=== PATIENT | female | born 1990 | race Caucasian/White ===

== ENCOUNTER 2020-02-27 06:57 | Inpatient (IN) ==
[2020-02-27] MEDS ORDERED: ACETAMINOPHEN 500 MG TAB PO STA (07:13)
--- NOTE | 2020-02-27 07:30 | Emergency Department Note ---
History of Present Illness General Chief complaint: Shortness of Breath/Dyspnea Stated complaint: SOB,COUGH,FEVER,CHEST FEELS HEAVY Time Seen by Provider: 02/27/20 07:07 Source: patient, RN notes reviewed and old records reviewed Mode of arrival: ambulatory Limitations: no limitations History of Present Illness Provider complaint: Chest pain Onset (ago): hour(s) 3 Location: chest Radiation: non-radiation Severity: moderate Pain Consistency: + other (pleuritic) Maximum Pain Intensity: 5 Current Pain Intensity: 5 Quality: + aching Relieved By: + immobilization Exacerbated By: + other (breathing) Associated symptoms: + denies other symptoms Treatments prior to arrival: none This is a 29-year-old female who presents the emergency department complaining of chest pain that started yesterday. In addition the patient is also on amoxicillin which was started yesterday for tooth pain. Patient describes the chest pain as pleuritic in nature. She reports that it gets worse every time she takes a deep breath. She also has a history of asthma as well as pneumonia. She is running a fever here in the emergency department however did not realize this. She denies any abdominal pain. Home Medications Home Medications Medication Instructions Recorded Confirmed Type albuterol sulfate 2 puff INHALATION Q4H PRN 02/01/20 02/27/20 History pantoprazole [Protonix] 40 mg PO DAILY 28 Days #28 tab 02/01/20 02/27/20 Rx propranolol 10 mg PO BID PRN 02/01/20 02/27/20 History quetiapine 300 mg PO HS 02/01/20 02/27/20 History sertraline 200 mg PO DAILY 02/01/20 02/27/20 History mirtazapine 15 mg PO HS 02/27/20 02/27/20 History Allergies Allergy/AdvReac Type Severity Reaction Status Date / Time latex Allergy Intermediate Hives Verified 02/27/20 07:54 fluconazole [From Diflucan] Allergy Hives Unverified 02/27/20 07:54 diphenhydramine AdvReac Hives Unverified 02/27/20 07:54 [From Benadryl] Past Med/Surg History Medical History Anxiety no meds Asthma childhood, no inhaler, no issues now Depression no meds--12/2016 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 Horvath 08/09/19 Hx of appendectomy Family History Mother Hypertension Family history of diabetes mellitus Pulmonary embolism Aunt Family history of diabetes mellitus Grandfather Heart disease Stroke Grandmother Heart disease Stroke Pulmonary embolism Grandmother (Paternal) Family history of esophageal cancer Father Suicide Other No family history of adverse response to anesthesia No significant family history Social History Preferred Language: Faroese Communication Ability: Effective Paper Ruler Required: No Beliefs That Will Affect Care: None marital status: Single marital status details: Current Living Situation: Significant Other Current Living Situation Comment: lives with kathya and his parents current occupational status: student current occupation: full-time student Other Information That Helps Us Care for You: No Feels Safe at Home: Yes Safety Concerns: Feels Safe At This Time Smoking Status: Current every day smoker Tobacco Type: e-cigarettes ; Cigarettes Per Day: uses vap every day ; Do You Dip or Chew Tobacco: No ; Second Hand Exposure: Yes ; Tobacco Cessation Education Requested by Patient: No Hx Alcohol Use: Yes Alcohol type: beer Hx Substance Use: No (history) Review of Systems A total of 10 systems reviewed and were otherwise negative Physical Exam Vital Signs Vital Signs - 24 hr 02/27/20 07:01 02/27/20 07:52 02/27/20 07:54 Temperature 38 C H Temperature Source Oral Pulse Rate 112 H Pulse Rate [Apical] Respiratory Rate 14 Respiratory Depth Normal Blood Pressure 115/80 Blood Pressure [Right Arm] Blood Pressure Mean 91 Blood Pressure Mean [Right Arm] Pulse Oximetry 95 95 96 Oxygen Delivery Method Room Air Room Air Room Air Sepsis Recent Fever Within 48 Hours Yes Sepsis New/Unexplained Change in Mental Status No Sepsis Action Taken by Nursing No Action Required 02/27/20 08:57 02/27/20 10:00 Temperature Temperature Source Pulse Rate Pulse Rate [Apical] 83 75 Respiratory Rate 18 18 Respiratory Depth Blood Pressure Blood Pressure [Right Arm] 118/72 106/59 L Blood Pressure Mean Blood Pressure Mean [Right Arm] 87 74 Pulse Oximetry 97 97 Oxygen Delivery Method Room Air Room Air Sepsis Recent Fever Within 48 Hours Sepsis New/Unexplained Change in Mental Status Sepsis Action Taken by Nursing GENERAL: Patient is a healthy-appearing well-nourished female HEAD: Normocephalic atraumatic EYES: Ocular movements intact pupils equal and react to light OROPHARYNX mucous membranes are moist no exudates present no erythema or edema present NECK: Supple no nuchal rigidity CHEST: Good equal expansion LUNGS: Clear and equal to auscultation CARDIAC: Normal S1 and S2 ABDOMEN: Soft nontender no guarding BACK: No CVA tenderness EXTREMITIES: No pain upon palpation normal muscle strength in all groups no clubbing cyanosis or edema NEURO: Patient is following commands is answering questions appropriately. Alert and oriented x3 Cranial Nerves 2-12 grossly intact Course Administered Medications Discontinued Medications Acetaminophen (Tylenol) 1,000 mg PO NOW STA Stop: 02/27/20 07:14 Last Admin: 02/27/20 07:27 Dose: 1,000 mg Documented by: [id number] Doxycycline Hyclate (Vibramycin) 100 mg PO NOW STA Stop: 02/27/20 08:32 Last Admin: 02/27/20 09:55 Dose: 100 mg Documented by: [id number] Ceftriaxone Sodium (Rocephin) 2,000 mg in 70 mls @ 140 mls/hr IV NOW STA Stop: 02/27/20 09:24 Last Admin: 02/27/20 09:55 Dose: 140 mls/hr Documented by: [id number] Potassium Chloride (Klor-Con M20) 40 meq PO NOW STA Stop: 02/27/20 08:32 Last Admin: 02/27/20 09:55 Dose: 40 meq Documented by: [id number] Medical Decision Making Differential Diagnosis Cardiac ischemia, aortic dissection, pulmonary embolism, pneumothorax, pneumonia, pericarditis, myocarditis, esophageal rupture, GERD, cholecystitis, pancreatitis, musculoskeletal, as well as other pathologies. Medical Records Attestation: I reviewed the patient's medical records. Home Medications Current Medication List: was personally reviewed by me Laboratory Data Attestation: I reviewed the patient's lab results. Result diagrams: 02/27/20 07:40 02/27/20 07:40 Lab Results 02/27/20 02/27/20 02/27/20 Range/Units 07:40 07:40 07:40 WBC 15.43 H (4.8-10.8) K/uL RBC 4.27 (4.2-5.4) M/uL Hgb 12.6 (12.0-16.0) g/dL Hct 37.0 (37-47) % MCV 86.7 (80-100) fL MCH 29.5 (25-34) pg MCHC 34.1 (32-36) g/dL RDW Std Deviation 46.1 (36.4-46.3) fL RDW Coeff of Sandy 14.7 H (11.5-14.5) % Plt Count 403 H (130-400) K/uL MPV 9.5 (7.4-10.4) fL Immature Gran % (Auto) 0.3 % Neut % (Auto) 82.6 % Lymph % (Auto) 11.3 % Craig % (Auto) 4.9 % Eos % (Auto) 0.8 % Baso % (Auto) 0.1 % Immature Gran # (Auto) 0.04 H (0.00-0.02) K/uL Neut # (Auto) 12.76 H (1.4-6.5) K/uL Lymph # (Auto) 1.74 (1.2-3.4) K/uL Craig # (Auto) 0.76 H (0.11-0.59) K/uL Eos # (Auto) 0.12 (0-0.5) K/uL Baso # (Auto) 0.01 (0-0.2) K/uL ESR (0-21) mm/hr PT 11.0 (9.0-12.0) Seconds INR 1.0 (0.9-1.1) APTT 29.1 (21.0-31.0) Seconds PTT Ratio 1.0 D-Dimer (0-500) ug/L FEU Sodium 135 L (136-145) mmol/L Potassium 3.3 L (3.5-5.1) mmol/L Chloride 107 (98-107) mmol/L Carbon Dioxide 21 (21-32) mmol/L Anion Gap 7.0 (3-11) BUN 6 L (7-18) mg/dl Creatinine 0.74 (0.6-1.2) mg/dl Est Cr Clr Drug Dosing 98.9 ml/min Est GFR ( Amer) 125.1 Est GFR (Non-Af Amer) 108.0 BUN/Creatinine Ratio 7.4 L (10-20) Glucose 111 H (70-99) mg/dl Calcium 8.5 (8.5-10.1) mg/dl Magnesium (1.8-2.4) mg/dl Ferritin 39.0 (8-388) ng/ml Total Bilirubin 0.7 (0.2-1) mg/dl AST 279 H (15-37) U/L ALT 548 H (12-78) U/L Alkaline Phosphatase 273 H (45-117) U/L Total Creatine Kinase 75 (26-192) U/L CK-MB (CK-2) < 1.0 (0.5-3.6) ng/ml CK/CKMB % Calc TNP Troponin I < 0.015 (0-0.045) ng/ml C-Reactive Protein 4.09 H (0-0.29) mg/dl Total Protein 7.6 (6.4-8.2) gm/dl Albumin 3.6 (3.4-5.0) gm/dl Globulin 4.0 (2.5-4.0) gm/dl Albumin/Globulin Ratio 0.9 (0.9-2) Lipase 105 (73-393) U/L HCG, Qual (Negative) Acetaminophen (10-30) ug/ml Ethyl Alcohol mg/dL (0-3) mg/dl Hep Bs Antigen (Neg) Influenza Type A (PCR) (Neg) Influenza Type B (PCR) (Neg) 02/27/20 02/27/20 02/27/20 Range/Units 07:40 07:40 07:40 WBC (4.8-10.8) K/uL RBC (4.2-5.4) M/uL Hgb (12.0-16.0) g/dL Hct (37-47) % MCV (80-100) fL MCH (25-34) pg MCHC (32-36) g/dL RDW Std Deviation (36.4-46.3) fL RDW Coeff of Snady (11.5-14.5) % Plt Count (130-400) K/uL MPV (7.4-10.4) fL Immature Gran % (Auto) % Neut % (Auto) % Lymph % (Auto) % Craig % (Auto) % Eos % (Auto) % Baso % (Auto) % Immature Gran # (Auto) (0.00-0.02) K/uL Neut # (Auto) (1.4-6.5) K/uL Lymph # (Auto) (1.2-3.4) K/uL Craig # (Auto) (0.11-0.59) K/uL Eos # (Auto) (0-0.5) K/uL Baso # (Auto) (0-0.2) K/uL ESR 65 H (0-21) mm/hr PT (9.0-12.0) Seconds INR (0.9-1.1) APTT (21.0-31.0) Seconds PTT Ratio D-Dimer 1030 H* (0-500) ug/L FEU Sodium (136-145) mmol/L Potassium (3.5-5.1) mmol/L Chloride (98-107) mmol/L Carbon Dioxide (21-32) mmol/L Anion Gap (3-11) BUN (7-18) mg/dl Creatinine (0.6-1.2) mg/dl Est Cr Clr Drug Dosing ml/min Est GFR ( Amer) Est GFR (Non-Af Amer) BUN/Creatinine Ratio (10-20) Glucose (70-99) mg/dl Calcium (8.5-10.1) mg/dl Magnesium (1.8-2.4) mg/dl Ferritin (8-388) ng/ml Total Bilirubin (0.2-1) mg/dl AST (15-37) U/L ALT (12-78) U/L Alkaline Phosphatase (45-117) U/L Total Creatine Kinase (26-192) U/L CK-MB (CK-2) (0.5-3.6) ng/ml CK/CKMB % Calc Troponin I (0-0.045) ng/ml C-Reactive Protein (0-0.29) mg/dl Total Protein (6.4-8.2) gm/dl Albumin (3.4-5.0) gm/dl Globulin (2.5-4.0) gm/dl Albumin/Globulin Ratio (0.9-2) Lipase (73-393) U/L HCG, Qual Negative (Negative) Acetaminophen (10-30) ug/ml Ethyl Alcohol mg/dL (0-3) mg/dl Hep Bs Antigen (Neg) Influenza Type A (PCR) (Neg) Influenza Type B (PCR) (Neg) 02/27/20 02/27/20 02/27/20 Range/Units 07:40 07:40 07:54 WBC (4.8-10.8) K/uL RBC (4.2-5.4) M/uL Hgb (12.0-16.0) g/dL Hct (37-47) % MCV (80-100) fL MCH (25-34) pg MCHC (32-36) g/dL RDW Std Deviation (36.4-46.3) fL RDW Coeff of Sandy (11.5-14.5) % Plt Count (130-400) K/uL MPV (7.4-10.4) fL Immature Gran % (Auto) % Neut % (Auto) % Lymph % (Auto) % Craig % (Auto) % Eos % (Auto) % Baso % (Auto) % Immature Gran # (Auto) (0.00-0.02) K/uL Neut # (Auto) (1.4-6.5) K/uL Lymph # (Auto) (1.2-3.4) K/uL Craig # (Auto) (0.11-0.59) K/uL Eos # (Auto) (0-0.5) K/uL Baso # (Auto) (0-0.2) K/uL ESR (0-21) mm/hr PT (9.0-12.0) Seconds INR (0.9-1.1) APTT (21.0-31.0) Seconds PTT Ratio D-Dimer (0-500) ug/L FEU Sodium (136-145) mmol/L Potassium (3.5-5.1) mmol/L Chloride (98-107) mmol/L Carbon Dioxide (21-32) mmol/L Anion Gap (3-11) BUN (7-18) mg/dl Creatinine (0.6-1.2) mg/dl Est Cr Clr Drug Dosing ml/min Est GFR ( Amer) Est GFR (Non-Af Amer) BUN/Creatinine Ratio (10-20) Glucose (70-99) mg/dl Calcium (8.5-10.1) mg/dl Magnesium 2.1 (1.8-2.4) mg/dl Ferritin (8-388) ng/ml Total Bilirubin (0.2-1) mg/dl AST (15-37) U/L ALT (12-78) U/L Alkaline Phosphatase (45-117) U/L Total Creatine Kinase (26-192) U/L CK-MB (CK-2) (0.5-3.6) ng/ml CK/CKMB % Calc Troponin I (0-0.045) ng/ml C-Reactive Protein (0-0.29) mg/dl Total Protein (6.4-8.2) gm/dl Albumin (3.4-5.0) gm/dl Globulin (2.5-4.0) gm/dl Albumin/Globulin Ratio (0.9-2) Lipase (73-393) U/L HCG, Qual (Negative) Acetaminophen < 2 L (10-30) ug/ml Ethyl Alcohol mg/dL (0-3) mg/dl Hep Bs Antigen (Neg) Influenza Type A (PCR) Neg for Influ A (Neg) Influenza Type B (PCR) Neg for Influ B (Neg) 02/27/20 02/27/20 Range/Units 09:13 09:13 WBC (4.8-10.8) K/uL RBC (4.2-5.4) M/uL Hgb (12.0-16.0) g/dL Hct (37-47) % MCV (80-100) fL MCH (25-34) pg MCHC (32-36) g/dL RDW Std Deviation (36.4-46.3) fL RDW Coeff of Sandy (11.5-14.5) % Plt Count (130-400) K/uL MPV (7.4-10.4) fL Immature Gran % (Auto) % Neut % (Auto) % Lymph % (Auto) % Craig % (Auto) % Eos % (Auto) % Baso % (Auto) % Immature Gran # (Auto) (0.00-0.02) K/uL Neut # (Auto) (1.4-6.5) K/uL Lymph # (Auto) (1.2-3.4) K/uL Craig # (Auto) (0.11-0.59) K/uL Eos # (Auto) (0-0.5) K/uL Baso # (Auto) (0-0.2) K/uL ESR (0-21) mm/hr PT (9.0-12.0) Seconds INR (0.9-1.1) APTT (21.0-31.0) Seconds PTT Ratio D-Dimer (0-500) ug/L FEU Sodium (136-145) mmol/L Potassium (3.5-5.1) mmol/L Chloride (98-107) mmol/L Carbon Dioxide (21-32) mmol/L Anion Gap (3-11) BUN (7-18) mg/dl Creatinine (0.6-1.2) mg/dl Est Cr Clr Drug Dosing ml/min Est GFR ( Amer) Est GFR (Non-Af Amer) BUN/Creatinine Ratio (10-20) Glucose (70-99) mg/dl Calcium (8.5-10.1) mg/dl Magnesium (1.8-2.4) mg/dl Ferritin (8-388) ng/ml Total Bilirubin (0.2-1) mg/dl AST (15-37) U/L ALT (12-78) U/L Alkaline Phosphatase (45-117) U/L Total Creatine Kinase (26-192) U/L CK-MB (CK-2) (0.5-3.6) ng/ml CK/CKMB % Calc Troponin I (0-0.045) ng/ml C-Reactive Protein (0-0.29) mg/dl Total Protein (6.4-8.2) gm/dl Albumin (3.4-5.0) gm/dl Globulin (2.5-4.0) gm/dl Albumin/Globulin Ratio (0.9-2) Lipase (73-393) U/L HCG, Qual (Negative) Acetaminophen (10-30) ug/ml Ethyl Alcohol mg/dL < 3.0 (0-3) mg/dl Hep Bs Antigen Neg (Neg) Influenza Type A (PCR) (Neg) Influenza Type B (PCR) (Neg) Imaging Data Attestation: I personally reviewed and interpreted this imaging study as follows: Radiologist's Impression: [place], [place] [phone] XRay Report Patient: BRIANNA MIRANDA Date: 02/27/20 MR#: [id number]: [address] Acct ID:[id number]: Date: 1990ty Zip: [place] [id number] Age: 29Location: ED Sex: F Room/Bed: Att Phy:Diagnosis: SOB,COUGH,FEVER,CHEST FEELS HEAVY Meredith Phy: Gagan Hope MDService Date: 02/27/20 Fam Phy:Interpreting Phy: Nate Rosas MD Admit Phy: Ordering Phy: Alexander Jenkins MD cc: ~ XR chest 1V portable CLINICAL HISTORY: Atypical chest pain COMPARISON STUDY: 02/01/2020 FINDINGS: The cardiac and mediastinal contours remain stable. Subtle left lung airspace opacities within the mid to lower lung zone are suspected. There is also an equivocal airspace opacity within the right upper lung zone. There are no pleural effusions. There is no failure.[ IMPRESSION: Suspected subtle airspace opacities, likely representing a nonspecific pneumonitis. Clinical and radiographic follow-up is recommended. ACT 112: Negative or not required by law. Electronically signed by: Nate Rosas M.D. 02/27/2020 8:22 AM Dictated: 02/27/20819 Transcribed: 02/27/20819 ECG Data Attestation: I personally reviewed and interpreted this ECG as follows: Indication: + chest pain Rate (beats per minute): 100 Rhythm: + normal sinus ECG Intervals/blocks: + Normal QT-c (423) ECG [place]: + Normal ECG ST segments: no ST depression and no ST elevation Comparison ECG Date: from (08/06/2019) Change: no significant change Blood Pressure Blood Pressure Findings: Low blood pressure MDM Narrative This is a 29-year-old female who presents emergency department complaining of shortness of breath. The patient was sent for chest x-ray which is concerning for pneumonitis. She is already on amoxicillin. She is running a fever here and is tachycardic. She was given Tylenol for the fever. Repeat examination revealed improvement the patient's symptoms. Patient also has her own albuterol inhaler which I encouraged her to use twice. Should blood cultures were obtained as well as ESR CRP d-dimer and ferritin level in accordance with coronavirus laboratory work. Montez swab was also obtained her flu swab is negative. Due to the tachycardia and the fever I did discuss the case with the hospitalist service as well as the fact that the patient is already on antibiotics. She was started on IV Rocephin as well as doxycycline here in the emergency department. Repeat examination revealed improvement the patient's symptoms. Patient's potassium level was also repleted. Patient is in agreement with the treatment plan. Cardiac monitoring: An order was placed for continuous cardiac monitoring. The monitor shows a rate of 100 with Normal Sinus rhythm. The patient was evaluated during the global COVID-19 pandemic, and that diagnosis was suspected/considered upon their initial presentation. Their evaluation, treatment and testing was consistent with current guidelines for patients who present with complaints or symptoms that may be related to COVID- 19. Impression & Plan Hypokalemia, Abnormal LFTs, Pneumonia Discharge Plan Visit Data Chief Complaint: Shortness of Breath/Dyspnea Stated Complaint: SOB,COUGH,FEVER,CHEST FEELS HEAVY ED Provider: Alexander Jenkins Discharge Problem: Hypokalemia, Abnormal LFTs, Pneumonia Discharge Instructions Interventions: ED Discharge Assessment Last Done: 02/27/20 10:16 Forms Stand Alone Forms: [facility] Prescriptions Prescriptions: No Action quetiapine 300 mg tablet 300 mg PO HS RF: 0 sertraline 100 mg tablet 200 mg PO DAILY RF: 0 propranolol 10 mg tablet 10 mg PO BID PRN (Reason: Anxiety) RF: 0 albuterol sulfate 90 mcg/actuation HFA aerosol inhaler 2 puff inhalation Q4H PRN (Reason: Shortness Of Breath Or Wheezing) RF: 0 pantoprazole [Protonix] 40 mg tablet,delayed release (DR/EC) 40 mg PO DAILY 28 Days Qty: 28 RF: 0 mirtazapine 15 mg tablet 15 mg PO HS RF: 0 Referrals Referrals: Jimbo Hope MD [Primary Care Provider] - Discharge Problem: Pneumonia Qualifiers: Pneumonia type: due to unspecified organism Laterality: bilateral Lung location: unspecified part of lung Qualified Code(s): J18.9 - Pneumonia, unspecified organism
[2020-02-27 07:55] LABS: Basophils # (auto) 0.01 K/uL (0-0.2); Basophils % (auto) 0.1 %; Eosinophils # (auto) 0.12 K/uL (0-0.5); Eosinophils % (auto) 0.8 %; Hemoglobin 12.6 g/dL (12.0-16.0); Immature Granulocytes # (auto) 0.04 K/uL (0.00-0.02); Immature Granulocytes % (auto) 0.3 %; Lymphocytes # (auto) 1.74 K/uL (1.2-3.4); Lymphocytes % (auto) 11.3 %; Mean Corpuscular Hemoglobin 29.5 pg (25-34); Mean Corpuscular Hgb Conc 34.1 g/dL (32-36); Mean Corpuscular Volume 86.7 fL (80-100); Mean Platelet Volume 9.5 fL (7.4-10.4); Monocytes # (auto) 0.76 K/uL (0.11-0.59); Monocytes % (auto) 4.9 %; Neutrophils # (auto) 12.76 K/uL (1.4-6.5); Neutrophils % (auto) 82.6 %; Platelet Count 403 K/uL (130-400); RDW Coefficient of Variation 14.7 % (11.5-14.5); RDW Standard Deviation 46.1 fL (36.4-46.3); Red Blood Count 4.27 M/uL (4.2-5.4); White Blood Count 15.43 K/uL (4.8-10.8)
[2020-02-27 08:12] LABS: Blood Urea Nitrogen 6 mg/dl (7-18); Carbon Dioxide 21 mmol/L (21-32); Chloride 107 mmol/L (98-107); Est GFR (African American) 125.1; Potassium 3.3 mmol/L (3.5-5.1); Sodium 135 mmol/L (136-145)
[2020-02-27 08:13] LABS: Alanine Aminotransferase 548 U/L (12-78); Albumin Level 3.6 gm/dl (3.4-5.0); Aspartate Aminotransferase 279 U/L (15-37); BUN Creatinine Ratio 7.4 (10-20); C Reactive Protein 4.09 mg/dl (0-0.29); Calcium 8.5 mg/dl (8.5-10.1); Creatinine Clr Calc Pharmacy 98.9 ml/min; Glucose 111 mg/dl (70-99); Lipase 105 U/L (73-393); Partial Thromboplastin Time 29.1 Seconds (21.0-31.0)
[2020-02-27 08:18] LABS: Albumin Globulin Ratio 0.9 (0.9-2); Alkaline Phosphatase 273 U/L (45-117); Bilirubin,Total 0.7 mg/dl (0.2-1); Creatine Kinase 75 U/L (26-192); Creatine Kinase MB < 1.0 ng/ml (0.5-3.6); Total Protein 7.6 gm/dl (6.4-8.2); Troponin I < 0.015 ng/ml (0-0.045)
--- NOTE | 2020-02-27 08:23 | XRay Report ---
XR chest 1V portable CLINICAL HISTORY: Atypical chest pain COMPARISON STUDY: 02/01/2020 FINDINGS: The cardiac and mediastinal contours remain stable. Subtle left lung airspace opacities wit hin the mid to lower lung zone are suspected. There is also an equivocal airspace opacity within the right upper lung zone. There are no pleural effusions. There is no failure.[ IMPRESSION: Suspected subtle airspace opacities, likely representing a nonspecific pneumonitis. Clini xochitl and radiographic follow-up is recommended. ACT 112: Negative or not required by law. Electronically signed by: Nate Rosas M.D. 02/27/2020 8:22 AM
[2020-02-27 08:25] LABS: Pregnancy Test, Serum Negative (Negative)
[2020-02-27] MEDS ORDERED: DOXYCYCLINE HYCLATE 100 MG CAP PO STA (08:31)
[2020-02-27] MEDS ORDERED: POTASSIUM CHLORIDE 20 MEQ TABCR PO STA (08:31)
[2020-02-27 08:37] LABS: Influenza A virus by PCR Neg for Influ A (Neg); Influenza B virus by PCR Neg for Influ B (Neg)
[2020-02-27] MEDS ORDERED: cefTRIAXone SODIUM 2,000 MG/70 ML BAG IV STA (08:55)
[2020-02-27 09:44] LABS: D Dimer 1030 ug/L FEU (0-500)
--- NOTE | 2020-02-27 09:46 | History & Physical Report ---
Date of Service February 27, 2020 Assessment & Plan (1) Pneumonia: b/l. This could be CAP (typical vs atypical) vs viral vs COVID-19 vs vaping-related lung injury (less likely) vs other. Blood cx's sent. Cover for CAP with rocephin/doxy. Send COVID-[address] in airborne isolation. Mucinex, incentive spirometry, combivent q6h. No role for steroids at this time despite h/o asthma. CTA chest was ordered by ER - will defer on this for now. (2) Suspected COVID-19 virus infection: Clinical picture could be c/w COVID-19. Elevated d-dimer, cxr findings, symptoms, abnormal LFTs, etc all are typical with COVID. Await testing. (3) Engages in vaping: Smoking cessation to be given. Can offer nicoderm patch (uses roughly <1/2 ppd). (4) Abnormal LFTs: She has had cholecystectomy in past. She has diarrhea but no post-prandial pain, no RUQ pain, no nausea/emesis. Just had unremarkable RUQ u/s earlier this month - fatty liver only. If she has COVID-19 then the abnormal LFTs could be 2nd to such. ER has sent acute hepatitis profile along with EBV titers. Tylenol level is undetectable. Denies etoh use. At minimum will trend LFTs and go from there. If they worsen and if no cause is found then consider GI consultation, repeat imaging, etc. Avoid tylenol while hospitalized. (5) Hypokalemia: given replacement in ER. check mag level. repeat BMP am. add KCL to IVF. (6) Clubbing of fingers: Long h/o asthma, prior meth use, vaping, tobacco, etc. Will need PFTs as outpatient. Smoking cessation needed. Thus far she is not hypoxic but is at risk of such if she has COVID-19. (7) Anxiety: Cont home meds including sertraline, seroquel, remeron, and inderal prn. QTc on EKG is wnl. (8) DVT prophylaxis: heparin 5000 BID IVF - NS with KCL at 100cc/hr x 2 L. Diet - regular. repeat labs in am. History of Present Illness Chief Complaint: fever, cough, dyspnea Primary Care Provider: Jimbo Hope MD 29yo female with h/o asthma, current tobacco use by way of vaping, anxiety, and prior meth use who presents with 24 hours of fever to as high as 102, cough productive of green sputum, chills, shortness of breath with exertion, and right-sided pleuritic type chest discomfort with deep breathing. No recent tra mya or COVID exposure. She does not work outside her home. She lives with her fiance and he works in the [employer] department at [employer]. He is not ill. She also had 3 episodes of watery diarrhea yesterday. She reports loss of appetite but no change in taste or smell. Denies myalgias or arthralgias. Denies abdominal pain. Denies taking any [id number] medications such as tylenol in excess. Just using her normal, regularly-prescribed medications. Allergies Allergy/AdvReac Type Severity Reaction Status Date / Time latex Allergy Intermediate Hives Verified 02/27/20 07:54 fluconazole [From Diflucan] Allergy Hives Unverified 02/27/20 07:54 diphenhydramine AdvReac Hives Unverified 02/27/20 07:54 [From Benadryl] Home Medications Home Medications Medication Instructions Recorded Confirmed Type albuterol sulfate 2 puff INHALATION Q4H PRN 02/01/20 02/27/20 History pantoprazole [Protonix] 40 mg PO DAILY 28 Days #28 tab 02/01/20 02/27/20 Rx propranolol 10 mg PO BID PRN 02/01/20 02/27/20 History quetiapine 300 mg PO HS 02/01/20 02/27/20 History sertraline 200 mg PO DAILY 02/01/20 02/27/20 History mirtazapine 15 mg PO HS 02/27/20 02/27/20 History Past Med/Surg History Medical History Anxiety no meds Asthma childhood, no inhaler, no issues now Depression no meds--12/2016 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 Horvath 08/09/19 Hx of appendectomy Family History Mother Hypertension Family history of diabetes mellitus Pulmonary embolism Aunt Family history of diabetes mellitus Grandfather Heart disease Stroke Grandmother Heart disease Stroke Pulmonary embolism Grandmother (Paternal) Family history of esophageal cancer Father Suicide Other No family history of adverse response to anesthesia No significant family history Social History Preferred Language: Irish Communication Ability: Effective Residential Field Manager Required: No Beliefs That Will Affect Care: None marital status: Single marital status details: Current Living Situation: Significant Other Current Living Situation Comment: lives with kathya and his parents current occupational status: student current occupation: full-time student Other Information That Helps Us Care for You: No Feels Safe at Home: Yes Safety Concerns: Feels Safe At This Time Smoking Status: Current every day smoker Tobacco Type: e-cigarettes ; Cigarettes Per Day: uses vap every day ; Do You Dip or Chew Tobacco: No ; Second Hand Exposure: No ; Tobacco Cessation Education Requested by Patient: No Hx Alcohol Use: Yes Alcohol type: beer Hx Substance Use: Yes substance use type: methamphetamine Substance Use Type Other:: history of overdose of wellbutrin 12/2016 Last Used Substance: Days (ago) Review of Systems Constitutional: + fever, + chills, + fatigue and + anorexia Eyes: no worsening vision Ear, Nose, Mouth, Throat: no nasal congestion, no nasal discharge, no post nasal drip and no sore throat Respiratory: + cough, + dyspnea, + pain on inspiration and + sputum production Cardiovascular: as per Subjective / HPI, + chest pain and + dyspnea on exertion; no dyspnea at rest Gastrointestinal: + diarrhea/loose stools; no abdominal pain, no nausea and no vomiting Genitourinary: no dysuria Musculoskeletal: no joint pain and no myalgia Integumentary: no rash Neurologic: no paresthesia Psychiatric: + anxiety Endocrine: no polyuria Hematologic / Lymphatic: + easy bruising Physical Exam Constitutional: + ill appearing; no acute distress and no altered mental status Eyes: + anicteric sclerae and PERRL ENMT: Nose: no external nose abnormality Mouth: + poor dentition; no oral mucosal abnormality and oral mucous membranes not dry Neck: trachea midline, no thyromegaly Respiratory: no respiratory distress Auscultation: + rales (fine, bibasilar); no wheezes Cardiovascular: Rate/Rhythm: regular rate and regular rhythm Heart Sounds: normal S1 and normal S2; no murmur and no cardiac rub Vessels: posterior tibial pulses present and dorsalis pedis pulses present; no JVD Extremities: no edema Gastrointestinal (Abdomen): normal bowel sounds, soft, nontender, no hepatosplenomegaly Musculoskeletal: Extremities: extremities normal to inspection and strength 5/5 throughout Skin: no rashes, warm and dry clubbing of fingernails Neurologic: moves all extremities; no focal motor deficits Psychiatric: Orientation: alert and oriented x 3 Results & Data Results & Data ([facility]) Vital Signs (Past 12 Hours) Vital Signs Temp Pulse Pulse Resp BP BP Pulse Ox 02/27/20 08:57 83 18 118/72 97 02/27/20 07:54 96 02/27/20 07:52 95 02/27/20 07:01 38 C H 112 H 14 115/80 95 Laboratory Results Laboratory Results - last 24 hr 02/27/20 02/27/20 02/27/20 07:40 07:40 07:40 WBC 15.43 H RBC 4.27 Hgb 12.6 Hct 37.0 MCV 86.7 MCH 29.5 MCHC 34.1 RDW Std Deviation 46.1 RDW Coeff of Sandy 14.7 H Plt Count 403 H MPV 9.5 Immature Gran % (Auto) 0.3 Neut % (Auto) 82.6 Lymph % (Auto) 11.3 [place] % (Auto) 4.9 Eos % (Auto) 0.8 Baso % (Auto) 0.1 Immature Gran # (Auto) 0.04 H Neut # (Auto) 12.76 H Lymph # (Auto) 1.74 [place] # (Auto) 0.76 H Eos # (Auto) 0.12 Baso # (Auto) 0.01 ESR PT 11.0 INR 1.0 APTT 29.1 PTT Ratio 1.0 D-Dimer Sodium 135 L Potassium 3.3 L Chloride 107 Carbon Dioxide 21 Anion Gap 7.0 BUN 6 L Creatinine 0.74 Est Cr Clr Drug Dosing 98.9 Est GFR ( Amer) 125.1 Est GFR (Non-Af Amer) 108.0 BUN/Creatinine Ratio 7.4 L Glucose 111 H Calcium 8.5 Magnesium Ferritin 39.0 Total Bilirubin 0.7 AST 279 H ALT 548 H Alkaline Phosphatase 273 H Total Creatine Kinase 75 CK-MB (CK-2) < 1.0 CK/CKMB % Calc TNP Troponin I < 0.015 C-Reactive Protein 4.09 H Total Protein 7.6 Albumin 3.6 Globulin 4.0 Albumin/Globulin Ratio 0.9 Lipase 105 HCG, Qual Acetaminophen Ethyl Alcohol mg/dL EBV Capsid Ag IgG Ab EBV Capsid Ag IgM Ab EBV EA Restrict+Diffuse EBV Nuclear Antigen Ab EBV Antibody Interp Hepatitis A IgM Ab Hep Bs Antigen Hep B Core IgM Ab Hepatitis C Antibody Monoscreen Influenza Type A (PCR) Influenza Type B (PCR) SARS-CoV-2 RNA (RT-PCR) 02/27/20 02/27/20 02/27/20 07:40 07:40 07:40 WBC RBC Hgb Hct MCV MCH MCHC RDW Std Deviation RDW Coeff of [place] Plt Count MPV Immature Gran % (Auto) Neut % (Auto) Lymph % (Auto) [place] % (Auto) Eos % (Auto) Baso % (Auto) Immature Gran # (Auto) Neut # (Auto) Lymph # (Auto) [place] # (Auto) Eos # (Auto) Baso # (Auto) ESR 65 H PT INR APTT PTT Ratio D-Dimer 1030 H* Sodium Potassium Chloride Carbon Dioxide Anion Gap BUN Creatinine Est Cr Clr Drug Dosing Est GFR ( Amer) Est GFR (Non-Af Amer) BUN/Creatinine Ratio Glucose Calcium Magnesium Ferritin Total Bilirubin AST ALT Alkaline Phosphatase Total Creatine Kinase CK-MB (CK-2) CK/CKMB % Calc Troponin I C-Reactive Protein Total Protein Albumin Globulin Albumin/Globulin Ratio Lipase HCG, Qual Negative Acetaminophen Ethyl Alcohol mg/dL EBV Capsid Ag IgG Ab EBV Capsid Ag IgM Ab EBV EA Restrict+Diffuse EBV Nuclear Antigen Ab EBV Antibody Interp Hepatitis A IgM Ab Hep Bs Antigen Hep B Core IgM Ab Hepatitis C Antibody Monoscreen Influenza Type A (PCR) Influenza Type B (PCR) SARS-CoV-2 RNA (RT-PCR) 02/27/20 02/27/20 02/27/20 07:40 07:40 07:40 WBC RBC Hgb Hct MCV MCH MCHC RDW Std Deviation RDW Coeff of [place] Plt Count MPV Immature Gran % (Auto) Neut % (Auto) Lymph % (Auto) [place] % (Auto) Eos % (Auto) Baso % (Auto) Immature Gran # (Auto) Neut # (Auto) Lymph # (Auto) [place] # (Auto) Eos # (Auto) Baso # (Auto) ESR PT INR APTT PTT Ratio D-Dimer Sodium Potassium Chloride Carbon Dioxide Anion Gap BUN Creatinine Est Cr Clr Drug Dosing Est GFR ( Amer) Est GFR (Non-Af Amer) BUN/Creatinine Ratio Glucose Calcium Magnesium 2.1 Ferritin Total Bilirubin AST ALT Alkaline Phosphatase Total Creatine Kinase CK-MB (CK-2) CK/CKMB % Calc Troponin I C-Reactive Protein Total Protein Albumin Globulin Albumin/Globulin Ratio Lipase HCG, Qual Acetaminophen < 2 L Ethyl Alcohol mg/dL EBV Capsid Ag IgG Ab EBV Capsid Ag IgM Ab EBV EA Restrict+Diffuse EBV Nuclear Antigen Ab EBV Antibody Interp Hepatitis A IgM Ab Hep Bs Antigen Hep B Core IgM Ab Hepatitis C Antibody Monoscreen Negative Influenza Type A (PCR) Influenza Type B (PCR) SARS-CoV-2 RNA (RT-PCR) 02/27/20 02/27/20 02/27/20 07:40 07:54 09:13 WBC RBC Hgb Hct MCV MCH MCHC RDW Std Deviation RDW Coeff of [place] Plt Count MPV Immature Gran % (Auto) Neut % (Auto) Lymph % (Auto) [place] % (Auto) Eos % (Auto) Baso % (Auto) Immature Gran # (Auto) Neut # (Auto) Lymph # (Auto) [place] # (Auto) Eos # (Auto) Baso # (Auto) ESR PT INR APTT PTT Ratio D-Dimer Sodium Potassium Chloride Carbon Dioxide Anion Gap BUN Creatinine Est Cr Clr Drug Dosing Est GFR ( Amer) Est GFR (Non-Af Amer) BUN/Creatinine Ratio Glucose Calcium Magnesium Ferritin Total Bilirubin AST ALT Alkaline Phosphatase Total Creatine Kinase CK-MB (CK-2) CK/CKMB % Calc Troponin I C-Reactive Protein Total Protein Albumin Globulin Albumin/Globulin Ratio Lipase HCG, Qual Acetaminophen Ethyl Alcohol mg/dL EBV Capsid Ag IgG Ab Pending EBV Capsid Ag IgM Ab Pending EBV EA Restrict+Diffuse Pending EBV Nuclear Antigen Ab Pending EBV Antibody Interp Pending Hepatitis A IgM Ab Hep Bs Antigen Neg Hep B Core IgM Ab Hepatitis C Antibody Neg Monoscreen Influenza Type A (PCR) Neg for Influ A Influenza Type B (PCR) Neg for Influ B SARS-CoV-2 RNA (RT-PCR) 02/27/20 02/27/20 02/27/20 09:13 09:13 Unknown WBC RBC Hgb Hct MCV MCH MCHC RDW Std Deviation RDW Coeff of [place] Plt Count MPV Immature Gran % (Auto) Neut % (Auto) Lymph % (Auto) [place] % (Auto) Eos % (Auto) Baso % (Auto) Immature Gran # (Auto) Neut # (Auto) Lymph # (Auto) [place] # (Auto) Eos # (Auto) Baso # (Auto) ESR PT INR APTT PTT Ratio D-Dimer Sodium Potassium Chloride Carbon Dioxide Anion Gap BUN Creatinine Est Cr Clr Drug Dosing Est GFR ( Amer) Est GFR (Non-Af Amer) BUN/Creatinine Ratio Glucose Calcium Magnesium Ferritin Total Bilirubin AST ALT Alkaline Phosphatase Total Creatine Kinase CK-MB (CK-2) CK/CKMB % Calc Troponin I C-Reactive Protein Total Protein Albumin Globulin Albumin/Globulin Ratio Lipase HCG, Qual Acetaminophen Ethyl Alcohol mg/dL < 3.0 EBV Capsid Ag IgG Ab EBV Capsid Ag IgM Ab EBV EA Restrict+Diffuse EBV Nuclear Antigen Ab EBV Antibody Interp Hepatitis A IgM Ab Pending Hep Bs Antigen Hep B Core IgM Ab Pending Hepatitis C Antibody Monoscreen Influenza Type A (PCR) Influenza Type B (PCR) SARS-CoV-2 RNA (RT-PCR) Pending Diagnostic Findings cxr: FINDINGS: The cardiac and mediastinal contours remain stable. Subtle left lung airspace opacities within the mid to lower lung zone are suspected. There is also an equivocal airspace opacity within the right upper lung zone. There are no pleural effusions. There is no failure.[ IMPRESSION: Suspected subtle airspace opacities, likely representing a nonspecific pneumonitis. Clinical and radiographic follow-up is recommended. EKG: my reading - NSR, LAFB, no ST changes, normal QTc Code Status & VTE Plan Code Status full VTE Prophylaxis Plan VTE Prophylaxis will be ordered: Yes PG Care Time/CCT Total # of Minutes Spent Total Time Spent with Patient: Total time spent is greater than 50% in coordination of care (as documented) at patient's floor/unit and/or counseling patient: Coding Level of Care Code 85009 Initial Inpt Care Lvl 3 Diagnoses Pneumonia J18.9 Laterality: bilateral Lung location: unspecified part of lung Pneumonia type: due to unspecified organism Suspected COVID-19 virus infection Z20.828 Engages in vaping Z72.89 Abnormal LFTs R94.5 Hypokalemia E87.6 Clubbing of fingers R68.3 Anxiety F41.9 DVT prophylaxis Z29.9 (1) Pneumonia Laterality: bilateral Lung location: unspecified part of lung Pneumonia type: due to unspecified organism Qualified Code(s): J18.9 - Pneumonia, unspecified organism
[2020-02-27 10:14] LABS: Hepatitis B Surface Antigen Neg (Neg)
[2020-02-27] MEDS ORDERED: INFLUENZA ADMINISTRATION CHARGE ONE (10:14)
[2020-02-27] MEDS ORDERED: INFLUENZA VIRUS QUAD VACCINE 0.5 ML SYR IM ONE (10:14)
[2020-02-27 10:42] LABS: Hepatitis C IgG 13Yrs+Old_Rflx Neg (Neg)
[2020-02-27] MEDS ORDERED: PROPRANOLOL HCL 10 MG TAB PO PRN (10:47)
[2020-02-27] MEDS ORDERED: ONDANSETRON INJ 2 MG/ML 2 ML VIAL IV PRN (10:47)
[2020-02-27] MEDS: LACTOBACILLUS ACIDOPHILUS (FLORANEX) TAB PO SCH ×2 (12:53→16:25)
[2020-02-27] MEDS: NSS + 20MEQ KCL 20 MEQ/1,000 ML BAG IV SCH (12:54)
[2020-02-27] MEDS: guaiFENesin 600 MG TABCR PO SCH ×2 (12:54→20:23)
--- NOTE | 2020-02-27 14:54 | Electrocardiogram Report ---
Test Reason : Blood Pressure : / mmHG Vent. Rate : 100 BPM Atrial Rate : 100 BPM P-R Int : 176 ms QRS Dur : 084 ms QT Int : 328 ms P-R-T Axes : 040 -25 024 degrees QTc Int : 423 ms Normal sinus rhythm Poor R wave progression, consider anterior PR vs. lead placement vs. LVH Abnormal ECG When compared with ECG of 06-AUG-2019 09:09, Vent. rate has increased BY 36 BPM Confirmed by Haris Mathur ([id number]) on 02/27/2020 2:54:13 PM Referred By: REFERRED SELF Confirmed By:Haris Mathur
[2020-02-27] MEDS: IPRATROPIUM BROMIDE HFA INHALER INH SCH ×3 (15:12→19:14)
[2020-02-27] MEDS: ALBUTEROL HFA 8 GM INHALER INH SCH ×3 (15:15→20:18)
[2020-02-27] MEDS: HEPARIN SOD 5,000 UNIT/0.5 ML VIAL SQ SCH (20:24)
[2020-02-27] MEDS ORDERED: MIRTAZAPINE TAB 15 MG TAB PO SCH (21:00)
[2020-02-27] MEDS ORDERED: DOXYCYCLINE HYCLATE 100 MG in DEXTROSE 5% 100 ML IV SCH (21:00)
[2020-02-27] MEDS ORDERED: QUETIAPINE FUMARATE 300 MG TABLET PO SCH (21:00)
[2020-02-28] MEDS: NSS + 20MEQ KCL 20 MEQ/1,000 ML BAG IV SCH (00:01)
[2020-02-28 02:00] LABS: Hepatitis A Antibody IgM NON-REACTIVE (NON-REACTIVE); Hepatitis B Core Antibody IgM NON-REACTIVE (NON-REACTIVE)
[2020-02-28 06:27] LABS: Basophils # (auto) 0.01 K/uL (0-0.2); Basophils % (auto) 0.1 %; Eosinophils # (auto) 0.12 K/uL (0-0.5); Eosinophils % (auto) 1.4 %; Hematocrit (blood only) 32.2 % (37-47); Hemoglobin 10.8 g/dL (12.0-16.0); Immature Granulocytes # (auto) 0.01 K/uL (0.00-0.02); Immature Granulocytes % (auto) 0.1 %; Lymphocytes # (auto) 2.11 K/uL (1.2-3.4); Lymphocytes % (auto) 25.1 %; Mean Corpuscular Hemoglobin 29.3 pg (25-34); Mean Corpuscular Hgb Conc 33.5 g/dL (32-36); Mean Corpuscular Volume 87.3 fL (80-100); Mean Platelet Volume 9.3 fL (7.4-10.4); Monocytes # (auto) 0.59 K/uL (0.11-0.59); Neutrophils # (auto) 5.56 K/uL (1.4-6.5); Neutrophils % (auto) 66.3 %; Platelet Count 355 K/uL (130-400); RDW Coefficient of Variation 14.6 % (11.5-14.5); RDW Standard Deviation 47.2 fL (36.4-46.3); Red Blood Count 3.69 M/uL (4.2-5.4)
[2020-02-28 07:03] LABS: Albumin Level 3.1 gm/dl (3.4-5.0); BUN Creatinine Ratio 14.5 (10-20); Calcium 8.2 mg/dl (8.5-10.1); Creatinine Clr Calc Pharmacy 117.7 ml/min; Est GFR (Non-African American) 120.8; Potassium 4.1 mmol/L (3.5-5.1)
[2020-02-28 07:12] LABS: Albumin Globulin Ratio 0.8 (0.9-2); Bilirubin,Total 0.5 mg/dl (0.2-1); Globulin 3.7 gm/dl (2.5-4.0); Total Protein 6.8 gm/dl (6.4-8.2)
[2020-02-28] MEDS: IPRATROPIUM BROMIDE HFA INHALER INH SCH (07:26)
[2020-02-28] MEDS: ALBUTEROL HFA 8 GM INHALER INH SCH (07:26)
[2020-02-28] MEDS: guaiFENesin 600 MG TABCR PO SCH (07:32)
[2020-02-28] MEDS: LACTOBACILLUS ACIDOPHILUS (FLORANEX) TAB PO SCH (07:33)
[2020-02-28] MEDS: HEPARIN SOD 5,000 UNIT/0.5 ML VIAL SQ SCH (07:36)
[2020-02-28] MEDS ORDERED: cefTRIAXone SODIUM 2,000 MG in DEXTROSE 5% 50 ML IV SCH (09:00)
[2020-02-28] MEDS ORDERED: SERTRALINE HCL 100 MG TABLET PO SCH (09:00)
[2020-02-28] MEDS ORDERED: PANTOprazole 40 MG TAB PO SCH (09:00)
[2020-02-28 10:24] LABS: EBV Virus Capsid Ag IgG Ab >750.00 U/mL; Epstein Barr Virus Early Ag Ab <9.00 U/mL
[2020-02-28] MEDS ORDERED: IPRATROPIUM BROMIDE HFA INHALER INH SCH (19:00)
[2020-02-28] MEDS ORDERED: ALBUTEROL HFA 8 GM INHALER INH SCH (19:00)
--- NOTE | 2020-02-28 19:11 | Discharge Summary ---
Date of Service February 28, 2020 Admission HPI Per Admitting Provider 29yo female with h/o asthma, current tobacco use by way of vaping, anxiety, and prior meth use who presents with 24 hours of fever to as high as 102, cough productive of green sputum, chills, shortness of breath with exertion, and right-sided pleuritic type chest discomfort with deep breathing. No recent travel or COVID exposure. She does not work outside her home. She lives with her fiance and he works in the [employer] department at [employer]. He is not ill. She also had 3 episodes of watery diarrhea yesterday. She reports loss of appetite but no change in taste or smell. Denies myalgias or arthralgias. Denies a bdominal pain. Denies taking any [id number]-[id number] medications such as tylenol in excess. Just using her normal, regularly-prescribed medications. Principal Diagnosis CAP - improving *COVID negative Discharge Exam gen aao pleasant [facility] heent nc at mmm breathing unlabored no accessory muscles no dyspnea no conversational dyspnea good effort skin no rashes no pallor or icterus Discharge Data Allergies Allergy/AdvReac Type Severity Reaction Status Date / Time latex Allergy Intermediate Hives Verified 02/27/20 07:54 fluconazole [From Diflucan] Allergy Hives Unverified 02/27/20 07:54 diphenhydramine AdvReac Hives Unverified 02/27/20 07:54 [From Benadryl] Hospital Course (1) Pneumonia: COVID sent - negative improving on doxy/rocephin --> home on doxy, cefdinir (2) Suspected COVID-19 virus infection: fortunately was negative (3) Engages in vaping: encouraged cessation - but wtih other struggles with addictions and anxiety, to continue to follow up w PCP (4) Abnormal LFTs: ?related to infection and/or underlying fatty liver --> improving --->stable for outpatient follow up - repeat LFT 2-3 wks and w/u further if needed *hepatitis was negative (5) Hypokalemia: replaced (6) Clubbing of fingers: tobacco abuse cessation as above (7) Anxiety: Cont home meds including sertraline, seroquel, remeron, and inderal prn. QTc on EKG is wnl. (8) DVT prophylaxis: heparin 5000 BID stable for home, instructions as below Total Time Total Time Spent Total Time Spent (In Minutes): >30 Discharge Plan Discharge Items Patient Disposition: Home - Self-Care Reason For Visit: B/L PNEUMONIA, TRANSAMINITIS Discharge Diagnosis: pneumonia, elevated liver enyzmes (see below) Activity: Resume your previous activity Non-emergency contact: Primary Care Provider Call non-emergency contact if: you have any medication questions, your symptoms worsen and your temperature is above 101 Follow-up/Referrals: Jimbo Hope MD [Primary Care Provider] - Diet: Regular Addtl Attending Provider Instructions: pneumonia -fortunately your COVID19 test was negative (these do have a reasonable false negative rate, but given how much better you feel and your fever is gone/breathing is better, this was most likely a "true negative" -- i only mention the false negative rate because if you were to (extremely unlikely) start to have fevers again in the next day or two, we'd want you to call Dr Hope's office about possibly getting repeat testing; again, however, you're significant improvement overnight makes something like this quite unlikely to be the case) -we had you on 2 antibiotics - doxycycline and ceftriaxone - to clear the pneumonia. as quickly as you're getting better we'll really only need to treat for about a week - so we'll have you on 6 more days of antibiotics - doxycycline 100mg twice a day and cefdinir (replaces the ceftriaxone) 300mg twice a day for 12 doses of each - next dose to be at bedtime tonight for both -usually the cefdinir is very low on side effects - if it does happen to upset your stomach you could take it with food -the doxycycline can sometimes be a little more upsetting to the stomach, so it wouldn't be a bad idea to take it with food right from the start; the other odd side effect it can cause is that in some people (a minority, but enough to make everyone aware that it could be them) it can make you more prone to sunburns (i've even had one person get a blistering sunburn after about 15 minutes outside) -- so with that in mind, even though it is mid-spring in [facility], we'd want you to act as though [place] the [place] -- ie wear protective clothing/sunscreen/etc when you're outside elevated liver enzymes -your liver enzymes were pretty significantly elevated when you were admitted - fortunately today (while they're still reasonably high) they've come down quite a bit. it is most likely that there are a few reasons for the markers of liver inflammation to be up: -infection: most of the time a bacterial pneumonia is preceded by a viral infection. the virus "distracts your immune system" and then later the bacteria can overgrow (to clarify - this doesn't happen at all most of the time with most viruses, but when someone gets a pneumonia, having a virus before hand is the most common way it'll play out); a lot of the viruses that can set this up also can cause a temporary inflammation of your liver - that would fit the best with what we're seeing right now. while less common, even some of the bacteria that can cause a pneumonia do also have a temporary inflammation of the liver that can come with them -fatty liver: looking back, the ultrasound from early January this year did show a mild degree of fatty liver. fatty liver frequently causes a low-grade liver inflammation (less than what we're seeing now, but certainly could be part of it too). they screened you for viral hepatitises and fortunately they were all negative (Hep A, B, and C all negative) so then, the most common reasons for a fatty liver are generally related to the "fuel" you're putting in your body. the most common thing we see causing it around here is a diet that is heavy in "bad" carbs (simple starches, sugars, potatoes, etc); also alcohol can do it, depending on when it was that you quit drinking sometimes we just see a residual that slowly gets better over months --->either way, the next steps would be as follows: -avoid anything that can make the liver inflamed or is heavily processed by the liver (ie definitely continue to not drink, avoid tylenol (acetaminophen) entirely, and avoid anti-inflammatories (ibuprofen, naproxen) at anything above the lowest wdbg-aij-zzgjwew dosing recommendations (ie ibuprofen no more than 200mg 3-4 times a day only if really needed or naproxen no more than 220mg twice a day only if really needed) -we'll ask that Dr Hope repeat liver enzymes in about 2-3 weeks - if things have gone back to totally normal, then great! if not, then he'll otilio things out more based on what he's seeing at that time smoking/vaping -i wouldn't be doing my job for you if i didn't make mention of the fact that smoking and vaping are absolutely set-ups to get pneumonias more easily. that said, as we discussed, when you're struggling or recovering from addictions, there's not always a "perfect world" scenario of not using anything - and in that case smoking is going to be safer than falling back to heavy drinking or drugs. as we discussed, it is still causing yourself harm - just usually at a slower pace (although we have seen some vaping related lung injury that seems more "qkac-xz-bur-box" than predictable to how much the person vapes). because you're young, and because maintaining sobriety from the other drugs and alcohol is absolutely more critically important, it's probably not the right time to quit just yet. however, over time (and especially once the pandemic lets up, stress of life settles, and Dr Hope keeps working with you on things) it'll be well worth your while to keep quitting smoking/vaping in the back of your mind as well. mainly right now just continue to follow actively with Dr Hope, I have all the confidence in the world in him and that he'll do well in helping to take care of you (just don't tell him that, he'll get a big head! Truthfully, he is an excellent doc and you're in very good hands working with him) mild anemia -as i was tying up loose ends on your chart, i also noticed that your blood counts are a little low - not low enough to notice / have symptoms from - and probably either just "lab variation" from repeating labs after having IVs (ie temporary dilution) or possibly a slightly low value from something common such as blood loss from your period. again - follow up with Dr Hope in regards to this as well. Pending Studies at Discharge: No Stand-Alone Forms: [facility], Smoking Cessation Medications and DC Order Prescriptions: New Lactobacillus acidoph-Veronica [Floranex] 1 million cell Tablet 4 tab PO TIDM Qty: 21 RF: 0 cefdinir 300 mg capsule 300 mg PO BID 6 Days Qty: 12 RF: 0 doxycycline hyclate 100 mg capsule 100 mg PO BID 6 Days Qty: 12 RF: 0 Continued quetiapine 300 mg tablet 300 mg PO HS RF: 0 sertraline 100 mg tablet 200 mg PO DAILY RF: 0 propranolol 10 mg tablet 10 mg PO BID PRN (Reason: Anxiety) RF: 0 albuterol sulfate 90 mcg/actuation HFA aerosol inhaler 2 puff inhalation Q4H PRN (Reason: Shortness Of Breath Or Wheezing) RF: 0 pantoprazole [Protonix] 40 mg tablet,delayed release (DR/EC) 40 mg PO DAILY 28 Days Qty: 28 RF: 0 mirtazapine 15 mg tablet 15 mg PO HS RF: 0 Discharge Orders: Discharge Order (Routine); Ordered 02/28/20 Ordered By: Ellis Silverman Admission Data Admit Date/Time: 02/27/20 09:53 Attending Provider: Ellis Silverman Admit Provider: Tarik Kolb Primary Care Provider: Jimbo Hope Other Providers: Tarik Kolb Other Interventions: Discharge Summary Assessment (RN) Last Done: 02/28/20 11:00 DC Date/Time DO NOT enter until pt leaves facility: 02/28/20 12:21 Coding Level of Care Code D/C Day Management >30 mins Diagnoses Pneumonia J18.9 Pneumonia type: due to unspecified organism Laterality: bilateral Lung location: unspecified part of lung Suspected COVID-19 virus infection Z20.828 Engages in vaping Z72.89 Abnormal LFTs R94.5 Hypokalemia E87.6 Clubbing of fingers R68.3 Anxiety F41.9 DVT prophylaxis Z29.9
== END 2020-02-28 12:21 | disposition home or self-care (01) | DRG 195 ==
LOC: ED 06:57 → 2S 09:53 → SUATTDRO 09:53 → 2S 10:16